=== PATIENT | female | born 1955 | race Two or more races ===

== ENCOUNTER 2019-01-07 23:39 | Emergency (ER) | payer OTHER ==
[~2019-01-07] VITALS: Ht 165.1 cm; Wt 95.3 kg
[~2019-01-07 23:39] MED LIST: AMLODIPINE BESYL5 MG ORAL; ASPIR 8181 MG ORAL; BENAZEPRIL HCL20 MG ORAL; FISH OIL CAP1000 MG ORAL; PRAVASTATIN SOD20 M1 ORAL
[2019-01-07 23:48] VITALS: BP 161/72
--- NOTE | 2019-01-07 23:51 | NUR ---
ED Nurse Note: pt walked in to ER C/O swelling and pain to right ankle and foot area. pain started about 2 weeks ago. 02/09. pt is alert x4. VSS
[2019-01-08] MEDS ORDERED: TRAMADOL HCL50 MG ORAL (00:46)
[2019-01-08 00:49] VITALS: BP 150/86
--- NOTE | 2019-01-08 00:49 | NUR ---
ER DISCHARGE NOTE: Patient is cleared to be discharged per ERMD, pt is aox4, on room air, with stable vital signs. pt was given dc and prescription instructions, pt was able to verbalize understanding, pt id band removed without complications. pt is able to ambulate with steady gait. pt took all belongings.
--- NOTE | 2019-01-08 11:14 | Diagnostic Imaging Report ---
Indication: Right foot pain Technique: XRAY Foot Complete R Comparison: None Findings: Bones appear slightly demineralized. No acute fractures identified. Lisfranc alignment of the foot is maintained. Some mild degenerative changes noted. There are plantar and dorsal calcaneal enthesophytes. No radiopaque foreign body identified. Impression: No evidence of acute fracture or dislocation.
--- NOTE | 2019-01-19 06:31 | Emergency Room Report ---
History of Present Illness General Chief Complaint: Edema Source: Patient Present Illness HPI Patient is a 63-year-old female presents after increased foot pain. Patient reports having chronic pain to her foot and ankle. She denies any recent trauma. She reports having persistent discomfort worse with ambulation. She denies any fever. She denies any calf pain or discomfort. She denies any recent surgery. Allergies: Coded Allergies: No Known Allergies (Unverified , 11/14/15) Patient History Past Medical History: see triage record Now: No Reviewed Nursing Documentation: PMH: Agreed; PSxH: Agreed Nursing Documentation-PMH Past Medical History: No History, Except For Hx Hypertension: Yes Hx Diabetes: Yes Review of Systems All Other Systems: negative except mentioned in HPI Physical Exam General Appearance: well appearing, no apparent distress, alert, GCS 15, obese Head: normocephalic, atraumatic ENT: hearing grossly normal, normal voice Neck: full range of motion, supple Respiratory: no respiratory distress, speaking full sentences Gastrointestinal: normal inspection Musculoskeletal: no calf tenderness, other - Negative Homans sign, tenderness Neurologic: normal gait Psychiatric: mood/affect normal Skin: no rash Medical Decision Making Diagnostic Impression: Primary Impression: Arthritis Additional Impression: Foot sprain ER Course Patient presents for foot pain. Differential diagnosis include was not limited to fracture, contusion, sprain among others. Patient was noted to have a prior history of arthritis. This appears to be an exacerbation of her chronic arthritis. Patient was given prescription for pain medications. She is advised to follow-up with her primary care physician for recheck. Advised to return if worse. Status: improved Disposition: HOME, SELF-CARE Condition: Stable Scripts Tramadol Hcl* (ULTRAM*) 50 Mg Tablet 50 MG ORAL Q6H PRN for For Pain, #10 TAB 0 Refills Prov: Conor Acosta MD 01/08/19 Referrals: NON PHYSICIAN (PCP) Patient Instructions: Foot Sprain Conor Acosta MD Jan 19, 2019 06:31
== END 2019-01-08 00:49 | disposition home or self-care (01) ==
LOC: EMR 01-08 00:04
DX: S93.601A Unspecified sprain of right foot, initial encounter (principal); M19.071 Primary osteoarthritis, right ankle and foot; X58.XXXA Exposure to other specified factors, initial encounter; Y92.9 Unspecified place or not applicable; E11.9 Type 2 diabetes mellitus without complications; I10 Essential (primary) hypertension; E66.9 Obesity, unspecified; Z68.34 Body mass index [BMI] 34.0-34.9, adult
CPT/HCPCS: 99283

== ENCOUNTER 2020-06-24 17:40 | Emergency (ER) | payer OTHER ==
[~2020-06-24] VITALS: Ht 165.1 cm; Wt 86.2 kg
[~2020-06-24 17:40] MED LIST changes: +TRAMADOL HCL50 MG ORAL
[2020-06-24 18:13] VITALS: BP 152/81
--- NOTE | 2020-06-24 18:15 | NUR ---
ED Nurse Note:pt. came from home with right hand swelling ,no injury reported, pt. is A/ox4
[2020-06-24] MEDS ORDERED: Ketorolac 30mg Inj IV ONE (18:30)
--- NOTE | 2020-06-24 19:00 | Diagnostic Imaging Report ---
EXAM: XR Right Hand Complete, 3 or More Views CLINICAL HISTORY: TRAUMA TECHNIQUE: Frontal, lateral and oblique views of the right hand. COMPARISON: No relevant prior studies available. FINDINGS: Bones/joints: CPPD with chondrocalcinosis of lunatotriquetral ligament. No acute fracture. No dislocation. Soft tissues: Unremarkable. No radiopaque foreign body. IMPRESSION: 1. No acute traumatic injury. 2. CPPD with chondrocalcinosis of lunatotriquetral ligament. 3. Otherwise unremarkable study.
--- NOTE | 2020-06-24 19:01 | Diagnostic Imaging Report ---
EXAM: XR Chest, 1 View CLINICAL HISTORY: TRAUMA TECHNIQUE: Frontal view of the chest. COMPARISON: 11/14/15 FINDINGS: Lungs: Low lung volumes with bronchovascular crowding. No consolidation, pleural effusion, or pneumothorax. Pleural space: See above. Heart: Unremarkable. No cardiomegaly. Mediastinum: Unremarkable. Bones/joints: No acute abnormality IMPRESSION: 1. Low lung volumes with bronchovascular crowding. 2. Otherwise no acute cardiopulmonary disease. 3. If there is continued concern, consider frontal and lateral chest radiographs or CT.
--- NOTE | 2020-06-24 19:02 | NUR ---
HAND-OFF: Report given to Silvano.
--- NOTE | 2020-06-24 19:25 | NUR ---
ED Nurse Note: Recieved report from am nurse to resume care, pt in bed awake and alert, waiting for results and disposition, pt has saline lock in left finger and states is painful, line removed, pt also states meds not effective and she remains with hand pain, provider informed and pt is being discharged.
--- NOTE | 2020-06-24 19:27 | Emergency Room Report ---
History of Present Illness General Chief Complaint: Upper Extremity Injury Source: Patient Present Illness HPI 65-year-old female with history of hypertension currently taking amlodipine here complaining of sudden onset of 2 days of hand swelling without any fall or injury. Reports that has been taking amlodipine every day. Denies chest pain shortness of breath. Denies headache and dizziness presenting tingling and numbness. Reports that hand pain is worse making a fist. Obvious swelling noted in right hand. Patient neurovascularly intact. Denies all other swelling. Reports that also has history of arthritis. Denies taking any blood thinners. Allergies: Coded Allergies: No Known Allergies (Unverified , 11/14/15) COVID-19 Screening Contact w/high risk pt: No Experienced COVID-19 symptoms?: No COVID-19 Testing performed PUBLIC RELATIONS MANAGER: No Patient History Past Medical History: see triage record Past Surgical History: none Pertinent Family History: none Last Menstrual Period: na Immunizations: UTD Reviewed Nursing Documentation: PMH: Agreed; PSxH: Agreed Nursing Documentation-PMH Past Medical History: No History, Except For Hx Hypertension: Yes Hx Diabetes: Yes Review of Systems All Other Systems: negative except mentioned in HPI Physical Exam Vital Signs Date Time Temp Pulse Resp B/P (MAP) Pulse Ox O2 Delivery O2 Flow Rate FiO2 06/24/20 17:57 99.0 74 18 152/81 (104) 99 Room Air Sp02 EP Interpretation: reviewed, normal General Appearance: no apparent distress, alert, GCS 15, non-toxic Head: normocephalic, atraumatic ENT: hearing grossly normal, normal pharynx, no angioedema, normal voice Neck: full range of motion, supple/symm/no masses Respiratory: chest non-tender, lungs clear, normal breath sounds, speaking full sentences Cardiovascular #1: regular rate, rhythm, no edema Cardiovascular #2: 2+ radial (R), 2+ radial (L) Rectal: deferred Musculoskeletal: back normal, non-tender, swelling - Dorsum right hand Neurologic: alert, motor strength/tone normal, oriented x3, sensory intact, responsive, speech normal Psychiatric: judgement/insight normal, memory normal, mood/affect normal, no suicidal/homicidal ideation Skin: no rash Lymphatic: no adenopathy Medical Decision Making PA Attestation All my diagnosis and treatment plans were reviewed ad discussed with my supervising physician Dr. Acosta Diagnostic Impression: Primary Impression: Pseudogout Additional Impression: Arthritis ER Course 65-year-old female with history of hypertension currently taking amlodipine here complaining of sudden onset of 2 days of hand swelling without any fall or injury. Reports that has been taking amlodipine every day. Denies chest pain shortness of breath. Denies headache and dizziness presenting tingling and numbness. Reports that hand pain is worse making a fist. Obvious swelling noted in right hand. Patient neurovascularly intact. Denies all other swelling. Reports that also has history of arthritis. Denies taking any blood thinners. Ddx considered but are not limited to: Hand sprain, hand sprain, hand fracture Vital signs: are WNL, pt. is afebrile H&PE are most consistent with : Pseudogout right hand ORDERS: Hand x-ray, chest x-ray, EKG, BMP, troponin, CBC, CMP, Motrin, prednisone ED INTERVENTIONS: Toradol DISCHARGE: At this time pt. is stable for d/c to home. Will provide printed patient care instructions, and any necessary prescriptions. Care plan and follow up instructions have been discussed with the patient prior to discharge. Take medication as directed, follow primary care provider, if worsening symptom return to the emergency room EKG Diagnostic Results Rate: normal Rhythm: NSR ST Segments: no acute changes Other Impression No acute ST changes ASA given to the pt in ED: No Chest X-Ray Diagnostic Results Chest X-Ray Diagnostic Results : Chest X-Ray Ordered: Yes # of Views/Limited/Complete: 1 View Indication: Other EP Interpretation: Yes PA Xray: Interpretation reviewed, by supervising MD, and agrees with findings. Interpretation: no consolidation, no effusion, no pneumothorax Impression: No acute disease Electronically Signed by: Lorie HARDEN Scribe Text Frontal view of the chest. COMPARISON: 11/14/15 FINDINGS: Lungs: Low lung volumes with bronchovascular crowding. No consolidation, pleural effusion, or pneumothorax. Pleural space: See above. Heart: Unremarkable. No cardiomegaly. Mediastinum: Unremarkable. Bones/joints: No acute abnormality IMPRESSION: 1. Low lung volumes with bronchovascular crowding. 2. Otherwise no acute cardiopulmonary disease. 3. If there is continued concern, consider frontal and lateral chest radiographs or CT. Other X-Ray Diagnostic Results Other X-Ray Diagnostic Results : X-Ray ordered: Right hand # of Views/Limited Vs Complete: 3 View Indication: Pain EP Interpretation: Yes PA Xray: Interpretation reviewed, by supervising MD, and agrees with findings. Interpretation: no dislocation, no soft tissue swelling, no fractures Impression: No acute disease Electronically Signed by: Lorie HARDEN Scribchelsey Text TECHNIQUE: Frontal, lateral and oblique views of the right hand. COMPARISON: No relevant prior studies available. FINDINGS: Bones/joints: CPPD with chondrocalcinosis of lunatotriquetral ligament. No acute fracture. No dislocation. Soft tissues: Unremarkable. No radiopaque foreign body. IMPRESSION: 1. No acute traumatic injury. 2. CPPD with chondrocalcinosis of lunatotriquetral ligament. 3. Otherwise unremarkable study. Last Vital Signs Date Time Temp Pulse Resp B/P (MAP) Pulse Ox O2 Delivery O2 Flow Rate FiO2 06/24/20 19:02 99.0 06/24/20 18:13 87 18 152/81 99 Room Air Disposition: HOME, SELF-CARE Condition: Stable Referrals: [facility],REFERRING (PCP) Patient Instructions: Arthritis, [id number] Additional Instructions: Take medication as directed, follow-up with your primary care provider, if worsening symptoms return to the emergency room Lorie Gaytan Jun 24, 2020 19:27
[2020-06-24 19:30] LABS: BASOPHILS % (AUTO) 4.1 % (0.0-2.0); EOSINOPHILS % (AUTO) 1.7 % (0.0-3.0); HEMATOCRIT 38.4 % (37.0-47.0); HEMOGLOBIN 12.3 G/DL (12.0-16.0); LYMPHOCYTES % (AUTO) 19.6 % (20.0-45.0); MEAN CORPUSCULAR VOLUME 81 FL (80-99); MONOCYTES % (AUTO) 10.8 % (1.0-10.0); NEUTROPHILS % (AUTO) 63.9 % (45.0-75.0); PLATELET COUNT 308 K/UL (150-450); RED BLOOD COUNT 4.75 M/UL (4.20-5.40); RED CELL DISTRIBUTION WIDTH 13.8 % (11.6-14.8); WHITE BLOOD COUNT 8.7 K/UL (4.8-10.8)
[2020-06-24 19:35] LABS: ANION GAP 10 mmol/L (5-15); BLOOD UREA NITROGEN 21 mg/dL (7-18); CALCIUM 9.5 MG/DL (8.5-10.1); CARBON DIOXIDE 25 MMOL/L (21-32); CHLORIDE 101 MMOL/L (98-107); CREATININE 0.6 MG/DL (0.55-1.30); POTASSIUM 4.6 MMOL/L (3.5-5.1); SODIUM 136 MMOL/L (136-145)
[2020-06-24 19:40] VITALS: BP 141/74
[2020-06-24 19:46] LABS: ALANINE AMINOTRANSFERASE 40 U/L (12-78); ALBUMIN 3.4 G/DL (3.4-5.0); ALBUMIN/GLOBULIN RATIO 0.7 (1.0-2.7); ALKALINE PHOSPHATASE 91 U/L (46-116); ASPARTATE AMINO TRANSFERASE 57 U/L (15-37); BILIRUBIN,TOTAL 0.2 MG/DL (0.2-1.0)
[2020-06-24] MEDS ORDERED: PREDNISONE20 MG ORAL (19:52)
[2020-06-24] MEDS ORDERED: IBUPROFEN600 M1 ORAL (19:52)
[2020-06-24 20:00] VITALS: BP 141/74
--- NOTE | 2020-06-24 20:00 | NUR ---
ER DISCHARGE NOTE: Patient is cleared to be discharged per ERMD, pt is aox4, on room air, with stable vital signs. pt was given dc and prescription instructions, pt was able to verbalize understanding, pt id band and iv site removed without complications. pt is able to ambulate with steady gait. pt took all belongings.
== END 2020-06-24 20:00 | disposition home or self-care (01) ==
LOC: EMR 18:19
DX: M11.241 Other chondrocalcinosis, right hand (principal); M19.90 Unspecified osteoarthritis, unspecified site; I10 Essential (primary) hypertension; E11.9 Type 2 diabetes mellitus without complications; Z79.899 Other long term (current) drug therapy
CPT/HCPCS: 36415; 71045; 73130; 80053; 83880; 84484; 85025; 93005; 96374; 99284; J1885